=== PATIENT | female | born 1960 | race Caucasian/White ===

== ENCOUNTER 2019-11-26 10:02 | Emergency (ER) | payer BC ==
[~2019-11-26 10:02] MED LIST: AMOXICILLIN500 MG PO; CIPROFLOXACN500 MG PO; FLAGYL ER750 MG PO; HYDROCHLORO25 MG/TAB PO; LISINOPRIL10 MG PO; LISINOPRIL40 MG PO; METOPROL TAR100 M1 PO; METOPROLOL SUCC25 MG OR; PREMARIN0.3 MG PO
[2019-11-26] MEDS ORDERED: ULORIC40 MG PO (10:12)
[2019-11-26] MEDS ORDERED: METOPROLOL SUCC50 MG PO (10:14)
[2019-11-26 10:28] LABS: HEMATOCRIT 45.8 % (37.0-47.0); IMMATURE GRANULOCYTES 0.1 % (0.0-5.0); MEAN CELL VOLUME 90.9 fL CALC (80.0-100.0); MEAN CORPUSCULAR HGB 31.7 pG CALC (26.0-32.0); MEAN CORPUSCULAR HGB CONC 34.9 g/dL CAL (32.0-36.0); NEUT# 3.73 thou/uL (2.00-7.15); RED BLOOD COUNT 5.04 mill/uL (4.20-5.60); RED CELL DISTRI WIDTH 12.6 % (11.5-15.5)
[2019-11-26 10:47] LABS: ALBUMIN 4.5 g/dL (3.2-5.0); ALKALINE PHOSPHATASE 81 u/l (38-126); ANION GAP 13 (6-22 (CALC)); BILIRUBIN, TOTAL 0.5 mg/dL (0.0-1.4); BUN 13 mg/dL (7-17); BUN/CREATININE RATIO 22 (12-20 (CALC)); CARBON DIOXIDE 26 mmol/l (22-30); CHLORIDE 103 mmol/l (95-108); CREATININE 0.6 mg/dL (0.5-1.0); GFR > 60 ML/MIN (>=60 (CALC)); GFR FOR AFR.AMER. > 60 ML/MIN (>=60 (CALC)); LIPASE 111 u/l (23-300); SGOT/AST 43 u/l (14-36); SODIUM 138 mmol/l (137-146); TOTAL PROTEIN 7.3 g/dL (6.3-8.2)
[2019-11-26 11:04] LABS: URINE BILIRUBIN - DIPSTICK NEGATIVE (NEGATIVE); URINE BLOOD DIPSTICK NEGATIVE (NEGATIVE); URINE COLOR YELLOW; URINE GLUCOSE - DIPSTICK NEGATIVE (NEGATIVE); URINE KETONE NEGATIVE (NEGATIVE); URINE LEUK ESTERASE NEGATIVE (NEGATIVE); URINE NITRITE - DIPSTICK NEGATIVE (Negative); URINE PH 6.5 (4.5-8.0); URINE PROTEIN - DIPSTICK NEGATIVE (NEG-TRACE); URINE SPECIFIC GRAVITY 1.015; URINE UROBILINOGEN - DIPSTICK 0.2 E.U./dL (0.2)
[2019-11-26 14:23] VITALS: BP 143/93
== END 2019-11-26 14:32 | disposition home or self-care (01) | DRG 392 ==
LOC: ED 10:02
PROVIDERS: Family Medicine
DX: R10.84 Generalized abdominal pain (principal); I10 Essential (primary) hypertension

== ENCOUNTER 2020-09-19 18:34 | Emergency (ER) | payer BC ==
[~2020-09-19] VITALS: Ht 154.9 cm; Wt 65.0 kg
[~2020-09-19 18:34] MED LIST changes: +METOPROLOL SUCC50 MG PO; +ULORIC40 MG PO
[2020-09-19] MEDS ORDERED: ATORVASTATIN CA20 MG PO (19:05)
[2020-09-19 19:22] LABS: HEMATOCRIT 45.6 % (37.0-47.0); HEMOGLOBIN 15.2 g/dl (12.0-16.0); IMMATURE GRANULOCYTES 0.3 % (0.0-5.0); MEAN CELL VOLUME 89.1 fL CALC (80.0-100.0); MEAN CORPUSCULAR HGB 29.7 pG CALC (26.0-32.0); MEAN CORPUSCULAR HGB CONC 33.3 g/dL CAL (32.0-36.0); NEUT# 9.81 thou/uL (2.00-7.15); RED BLOOD COUNT 5.12 mill/uL (4.20-5.60); RED CELL DISTRI WIDTH 13.2 % (11.5-15.5)
[2020-09-19 19:23] LABS: URINE BILIRUBIN - DIPSTICK NEGATIVE (NEGATIVE); URINE BLOOD DIPSTICK NEGATIVE (NEGATIVE); URINE COLOR YELLOW; URINE GLUCOSE - DIPSTICK NEGATIVE (NEGATIVE); URINE KETONE TRACE mg/dL (NEGATIVE); URINE LEUK ESTERASE TRACE (NEGATIVE); URINE NITRITE - DIPSTICK NEGATIVE (Negative); URINE PROTEIN - DIPSTICK NEGATIVE (NEG-TRACE); URINE SPECIFIC GRAVITY >=1.030; URINE UROBILINOGEN - DIPSTICK 0.2 E.U./dL (0.2)
[2020-09-19 19:34] LABS: ALBUMIN 4.6 g/dL (3.2-5.0); ALKALINE PHOSPHATASE 98 u/l (38-126); AMYLASE 58 u/l (30-110); ANION GAP 12 (6-22 (CALC)); BILIRUBIN, TOTAL 1.1 mg/dL (0.0-1.4); BUN 16 mg/dL (7-17); BUN/CREATININE RATIO 26 (12-20 (CALC)); CARBON DIOXIDE 25 mmol/l (22-30); CHLORIDE 101 mmol/l (95-108); CREATININE 0.6 mg/dL (0.5-1.0); GFR > 60 ML/MIN (>=60 (CALC)); GFR FOR AFR.AMER. > 60 ML/MIN (>=60 (CALC)); LIPASE 94 u/l (23-300); POTASSIUM 3.5 mmol/l (3.5-5.1); SGOT/AST 26 u/l (14-36); SODIUM 134 mmol/l (137-146); TOTAL PROTEIN 7.5 g/dL (6.3-8.2)
[2020-09-20 02:10] VITALS: BP 128/78
== END 2020-09-20 02:10 | DRG 395 ==
LOC: ED 18:34
PROVIDERS: Family Medicine
DX: K35.80 Unspecified acute appendicitis (principal); I10 Essential (primary) hypertension; E78.5 Hyperlipidemia, unspecified; M10.9 Gout, unspecified; Z20.822 Contact with and (suspected) exposure to COVID-19
CPT/HCPCS: J0131; Q9967